=== PATIENT | female | born 1990 | race Caucasian/White ===

== ENCOUNTER → 2016-11-10 | Outpatient (CLI) | payer BC, OTHER ==
--- NOTE | 2016-11-10 16:55 | CT ---
EXAMINATION TYPE: CT sella turcica wo con DATE OF EXAM: 11/10/2016 4:46 PM COMPARISON: NONE HISTORY: Hairloss, headaches and amenorrhea. CT DLP: 210.00 mGycm Automated exposure control for dose reduction was used. Unenhanced CT of the sella turcica was perfor med. The lack of contrast limits examination due to a for microadenoma. FINDINGS: The pituitary gland appears to be of normal size measuring 9.7 x 7.1 mm. No evidence for macroadenoma . This study is nondiagnostic for microadenoma. If there is clinical concern for microadenoma conside r MRI with and without contrast of the pituitary gland. Sella turcica is grossly intact without evide nce for bony erosion or destructive process. Suprasellar cistern is grossly unremarkable. Visualized brain parenchyma is grossly unremarkable. IMPRESSION: NO GROSS ABNORMALITY IS SEEN OF THE SELLA TURCICA. 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
== END | disposition home or self-care (01) ==
LOC: RADCTMAIN 16:11
PROVIDERS: ATTEND Family Medicine
DX: R51 Headache (principal)
CPT/HCPCS: 70480

== ENCOUNTER → 2016-11-25 | Outpatient (CLI) | payer BC ==
--- NOTE | 2016-11-26 08:34 | MR ---
MRI brain with and without contrast HISTORY: Hair loss, amenorrhea, abnormal CT, headaches Multiplanar multisequence and postcontrast images obtained through the brain with special attention t o the sella turcica following 20 cc MultiHance IV. Correlation to sella turcica CT dated 10 November 2016 The pituitary shows a normal configuration. There is normal enhancement following contrast administra tion. No mass effect. Internal carotid arteries show normal flow voids. Corpus callosum is within nor mal limits. IMPRESSION: Normal pituitary MRI
== END ==
LOC: RADMRIMAIN 19:45
PROVIDERS: ATTEND Family Medicine
DX: R51 Headache (principal); R93.0 Abnormal findings on diagnostic imaging of skull and head, not elsewhere classified; L65.9 Nonscarring hair loss, unspecified; N91.2 Amenorrhea, unspecified
CPT/HCPCS: 70553; A9577

== ENCOUNTER → 2016-12-13 | Outpatient (CLI) | payer BC ==
[2016-12-13 10:26] LABS: Basophils # (A) 0.1 k/uL (0-0.2); Basophils % (A) 1 %; CH 30.4; CHCM 35.1; Eosinophils # (A) 0.2 k/uL (0-0.7); Eosinophils % (A) 2 %; HCT 41.9 % (34.0-46.0); HDW 2.91; HGB 14.4 gm/dL (11.4-16.0); Luc # (Auto) 0.15; Luc % (Auto) 2; Lymphocytes # (A) 2.5 k/uL (1.0-4.8); Lymphocytes % (A) 29 %; MCH 29.9 pg (25.0-35.0); MCHC 34.3 g/dL (31.0-37.0); Mean Platelet Volume 7.4; Monocytes # (A) 0.4 k/uL (0-1.0); Monocytes % (A) 4 %; Neutrophils # (A) 5.4 k/uL (1.3-7.7); Neutrophils % (A) 63 %; RBC 4.82 m/uL (3.80-5.40); RDW 13.3 % (11.5-15.5); WBC 8.6 k/uL (3.8-10.6); WBC (Perox) 8.54
[2016-12-13 12:25] LABS: ALT 27 U/L (9-52); AST 15 U/L (14-36); Alkaline Phosphatase 58 U/L (38-126); Anion Gap 8 mmol/L; Blood Urea Nitrogen 15 mg/dL (7-17); Calcium 10.1 mg/dL (8.4-10.2); Carbon Dioxide 27 mmol/L (22-30); Chloride 106 mmol/L (98-107); Cholesterol 246 mg/dL (<200); Glucose 102 mg/dL (74-99); HDL Cholesterol 56 mg/dL (40-60); Non-African American GFR(MDRD) >60 (>60 ml/min/1.73 sqM); Potassium 4.6 mmol/L (3.5-5.1); Sodium 141 mmol/L (137-145); Total Bilirubin 0.6 mg/dL (0.2-1.3); Total Protein 7.7 g/dL (6.3-8.2); Triglycerides 121 mg/dL (<150)
[2016-12-13 14:42] LABS: Follicle Stimulating Hormone <0.7 mIU/mL
[2016-12-13 14:58] LABS: Estradiol 32 pg/mL
[2016-12-13 22:08] LABS: ACTH 18.3 pg/mL (0.00-45.99)
== END | disposition home or self-care (01) ==
LOC: LABWHC1 10:06
PROVIDERS: ATTEND Family Medicine
DX: E55.9 Vitamin D deficiency, unspecified (principal); E78.5 Hyperlipidemia, unspecified; R53.81 Other malaise; R10.9 Unspecified abdominal pain; L65.9 Nonscarring hair loss, unspecified
CPT/HCPCS: 36415; 80053; 80061; 82024; 82306; 82533; 82670; 83001; 83002; 84146; 84403; 84439; 84443; 85025

== ENCOUNTER → 2016-12-30 | Outpatient (CLI) | payer BC ==
--- NOTE | 2016-12-30 16:55 | US ---
EXAMINATION TYPE: US pelvic complete DATE OF EXAM: 12/30/2016 4:34 PM COMPARISON: CT abdomen and pelvis July 08, 2016 CLINICAL HISTORY: R10.9 ABD AND PELVIC PAIN. Pelvic pain TECHNIQUE: Transabdominal (TA) Date of LMP: 12/17/16 EXAM MEASUREMENTS: Uterus: 7.2 x 3.1 x 4.8 cm Endometrial Stripe: 0.4 cm Right Ovary: 3.2 x 1.7 x 1.8 cm Left Ovary: 3.1 x 2.6 x 2.1 cm 1. Uterus: Anteverted appears wnl 2. Endometrium: appears wnl 3. Right Ovary: wnl 4. Left Ovary: follicles 5. Bilateral Adnexa: wnl 6. Posterior cul-de-sac: wnl Uterus is anteverted in shape and appears normal in size. Endometrium is not suspiciously thickened. No free fluid is seen in pelvis. Both ovaries are seen. No concerning adnexal masses are noted. IMPRESSION: No significant finding is seen to account for patient's symptoms.
== END ==
LOC: RADUSWWP 15:47
PROVIDERS: ATTEND Family Medicine
DX: R10.9 Unspecified abdominal pain (principal)
CPT/HCPCS: 76856

== ENCOUNTER → 2017-03-11 | Outpatient (CLI) | payer BC | END | disposition home or self-care (01) | LOC: LABWHC1 15:47 | PROVIDERS: ATTEND Dermatology | DX: L64.8 Other androgenic alopecia (principal) | CPT/HCPCS: 36415; 84132 ==

== ENCOUNTER → 2018-01-14 | Outpatient (CLI) | payer OTHER | END | disposition home or self-care (01) | LOC: LABWHC1 16:59 | PROVIDERS: ATTEND Dermatology | DX: L64.8 Other androgenic alopecia (principal) | CPT/HCPCS: 36415; 84132 ==

== ENCOUNTER 2018-04-16 23:32 | Emergency (ER) | payer OTHER ==
[2018-04-16 23:39] VITALS: RESP 16; TEMP 99.3
[2018-04-17] MEDS ORDERED: SODIUM CHLORIDE 0.9% 500 ML IV STA (00:29)
--- NOTE | 2018-04-17 00:38 | ED ---
General Adult HPI - General Chief complaint: Upper Respiratory Infection Stated complaint: cough Time Seen by Provider: 04/16/18 23:50 Source: patient Mode of arrival: ambulatory Limitations: no limitations - History of Present Illness Initial comments: Dayanna is a 27 yo previously healthy non-smoker who presents to the ED today via private vehicle for evaluation of progressively worsening nasal congestion, sinus pressure and cough. Patient reports that her and her mother have been staying in a hotel, she reports for the past few days she has been experiencing sinus congestion and post nasal drip. She reports that over the past couple of days she has developed progressively worsening cough, she describes it as feeling as though she has a constant tickle in her throat and constant urge to cough though all she produces is clear sputum. Patient reports that coughing has caused her to have a sore throat and now a headache. She states that she has tried cough drops as well as numbing throat sprays with minimal improvement in her symptoms. She reports that she used a breathing treatment at home which just made her feel like her heart was racing and caused her to cough up more clear sputum. Patient denies any fevers or chills, nausea or vomiting, abdominal pain or change in bowel or bladder habits. She denies any exertional chest pain or cardiac history. Patient states that over the past day her mother has also begun exhibiting symptoms which prompted her to come to the ER for evaluation. - Related Data Home Medications Medication Instructions Recorded Confirmed Levonorgestrel-Ethin Estradiol 1 tab PO DAILY 07/08/16 07/08/16 [Levora-28 Tablet] Previous Rx's Medication Instructions Recorded Ciprofloxacin HCl [Cipro] 500 mg PO Q12HR #14 tablet 07/08/16 Phenazopyridine [Pyridium] 100 mg PO TID #9 tablet 07/08/16 Allergies Allergy/AdvReac Type Severity Reaction Status Date / Time Anesthetics - Yamilka Type- Allergy Swelling Verified 04/16/18 23:39 Parabens [Anesthetics - Yamilka Type] Review of Systems ROS Statement: Those systems with pertinent positive or pertinent negative responses have been documented in the HPI. ROS Other: All systems not noted in ROS Statement are negative. Past Medical History Additional Past Medical History / Comment(s): kidney stones History of Any Multi-Drug Resistant Organisms: None Reported Additional Past Surgical History / Comment(s): eye surg Past Psychological History: No Psychological Hx Reported Smoking Status: Never smoker Past Alcohol Use History: None Reported Past Drug Use History: None Reported General Exam - General Exam Comments Initial Comments: GENERAL: Patient is well-developed and well-nourished. Patient is nontoxic and well- hydrated. She has occasional coughing spells during exam HENT: Normocephalic, Atraumatic. Neck is soft and supple. No significant lymphadenopathy is noted. Oropharynx is clear with visible postnasal drip. Moist mucous membranes. Neck has full range of motion without eliciting any pain. EYES: The sclera were anicteric and conjunctiva were pink and moist. Extraocular movements were intact and pupils were equal round and reactive to light. Eyelids were unremarkable. PULMONARY: Unlabored respirations. Good breath sounds bilaterally. No audible rales rhonchi or wheezing was noted. CARDIOVASCULAR: Tachycardic, regular ABDOMEN: Soft and nontender with normal bowel sounds. SKIN: Skin is clear with no lesions or rashes and otherwise unremarkable. NEUROLOGIC: Patient is alert and oriented x3. Cranial nerves II through XII are grossly intact. Motor and sensory are also intact. Normal speech, volume and content. Symmetrical smile. MUSCULOSKELETAL: Normal extremities with adequate strength and full range of motion. No lower extremity swelling or edema. No calf tenderness. LYMPHATICS: No significant lymphadenopathy is noted PSYCHIATRIC: Normal psychiatric evaluation. Limitations: no limitations Limitations: no limitations Course Vital Signs 04/16/18 04/17/18 04/17/18 23:36 00:51 01:32 Temperature 99.3 F Pulse Rate 111 H 70 97 Respiratory 16 16 16 Rate Blood Pressure 132/87 128/66 114/70 O2 Sat by Pulse 96 98 96 Oximetry Medical Decision Making - Medical Decision Making The patient was seen and evaluated, history was obtained from the patient Chest x-ray and labs are ordered X-ray with no acute findings Aced on patient's history and physical exam I have a high suspicion for a viral illness. At this time I don't feel there is any indication for antibiotic therapy. This was discussed with the patient who expresses some disappointment that she was hoping to get a medication that would make her feel better today. I advised her that she needs to remain hydrated, symptomatic treatment with nasal spray, allergy medication and cough drops. Return parameters were discussed with the patient, all questions pertaining care were answered best my ability and the patient was discharged home able condition. - Lab Data Result diagrams: 04/17/18 00:40 04/17/18 00:40 Lab Results 04/17/18 04/17/18 Range/Units 00:40 00:40 WBC 15.9 H (3.8-10.6) k/uL RBC 4.42 (3.80-5.40) m/uL Hgb 13.3 (11.4-16.0) gm/dL Hct 40.3 (34.0-46.0) % MCV 91.2 (80.0-100.0) fL MCH 30.1 (25.0-35.0) pg MCHC 33.0 (31.0-37.0) g/dL RDW 12.9 (11.5-15.5) % Plt Count 282 (150-450) k/uL Neutrophils % 78 % Lymphocytes % 14 % Monocytes % 5 % Eosinophils % 2 % Basophils % 0 % Neutrophils # 12.4 H (1.3-7.7) k/uL Lymphocytes # 2.2 (1.0-4.8) k/uL Monocytes # 0.8 (0-1.0) k/uL Eosinophils # 0.2 (0-0.7) k/uL Basophils # 0.1 (0-0.2) k/uL Sodium 138 (137-145) mmol/L Potassium 4.2 (3.5-5.1) mmol/L Chloride 103 (98-107) mmol/L Carbon Dioxide 27 (22-30) mmol/L Anion Gap 8 mmol/L BUN 16 (7-17) mg/dL Creatinine 0.80 (0.52-1.04) mg/dL Est GFR (CKD-EPI)AfAm >90 (>60 ml/min/1.73 sqM) Est GFR (CKD-EPI)NonAf >90 (>60 ml/min/1.73 sqM) Glucose 117 H (74-99) mg/dL Calcium 10.4 H (8.4-10.2) mg/dL Disposition Clinical Impression: Viral infection, Upper respiratory infection Disposition: HOME SELF-CARE Instructions: Upper Respiratory Infection (ED) Is patient prescribed a controlled substance at d/c from ED?: No Referrals: Diaz Locke MD [Primary Care Provider] - 1-2 days Time of Disposition: 01:24
[2018-04-17 00:56] LABS: Basophils # (A) 0.1 k/uL (0-0.2); Basophils % (A) 0 %; Eosinophils # (A) 0.2 k/uL (0-0.7); Eosinophils % (A) 2 %; HCT 40.3 % (34.0-46.0); HGB 13.3 gm/dL (11.4-16.0); Lymphocytes # (A) 2.2 k/uL (1.0-4.8); Lymphocytes % (A) 14 %; MCH 30.1 pg (25.0-35.0); MCV 91.2 fL (80.0-100.0); Mean Platelet Volume 7.5; Monocytes # (A) 0.8 k/uL (0-1.0); Monocytes % (A) 5 %; Neutrophils # (A) 12.4 k/uL (1.3-7.7); Neutrophils % (A) 78 %; Platelet Count 282 k/uL (150-450); RBC 4.42 m/uL (3.80-5.40); RDW 12.9 % (11.5-15.5); WBC 15.9 k/uL (3.8-10.6)
[2018-04-17 01:04] LABS: Anion Gap 8 mmol/L; Blood Urea Nitrogen 16 mg/dL (7-17); Calcium 10.4 mg/dL (8.4-10.2); Carbon Dioxide 27 mmol/L (22-30); Chloride 103 mmol/L (98-107); Glucose 117 mg/dL (74-99); Potassium 4.2 mmol/L (3.5-5.1); Sodium 138 mmol/L (137-145)
--- NOTE | 2018-04-17 01:05 | XR ---
EXAMINATION TYPE: XR chest 2V DATE OF EXAM: 04/17/2018 COMPARISON: NONE HISTORY: Cough TECHNIQUE: Frontal and lateral views of the chest are obtained. FINDINGS: Heart and mediastinum are normal. Lungs are clear. Diaphragm is normal. Bony thorax appear s normal. Pulmonary vascularity is normal. IMPRESSION: Normal chest.
[2018-04-17 01:32] VITALS: BP 114/70; PULSE 97
== END 2018-04-17 01:32 | disposition home or self-care (01) ==
LOC: EC 23:32
DX: J06.9 Acute upper respiratory infection, unspecified (principal); R00.0 Tachycardia, unspecified; Z79.3 Long term (current) use of hormonal contraceptives; Z88.4 Allergy status to anesthetic agent
CPT/HCPCS: 36415; 71046; 80048; 85025; 99283

== ENCOUNTER → 2018-05-21 | Outpatient (CLI) | payer OTHER | END | disposition home or self-care (01) | LOC: LABWHC1 08:39 | PROVIDERS: ATTEND Physician Assistant Medical | DX: L64.8 Other androgenic alopecia (principal) | CPT/HCPCS: 36415; 84132 ==

== ENCOUNTER → 2019-04-05 | Outpatient (CLI) | payer OTHER ==
--- NOTE | 2019-04-06 10:15 | US ---
EXAMINATION TYPE: US kidneys/renal and bladder DATE OF EXAM: 04/05/2019 COMPARISON: NONE CLINICAL HISTORY: N20.1 right ureteral stone; prior right flank pain; prior left renal stone per marisa ent EXAM MEASUREMENTS: Right Kidney: 10.4 x 5.8 x 4.7 cm Left Kidney: 11.2 x 4.4 x 4.7 cm Post Void Residual Volume: 0.7 mL Right Kidney: prominent right renal pelvis = 1.12cm Left Kidney: No hydronephrosis or masses seen Bladder: wnl Bilateral Jets seen: yes Normal Post Void Residual: yes IMPRESSION: 1. There is slight prominence of the right renal pelvis. This could be due to a extrarenal pelvis.
== END | disposition home or self-care (01) ==
LOC: RADUSWWP 15:49
PROVIDERS: ATTEND Family Medicine
DX: N20.1 Calculus of ureter (principal); Z88.4 Allergy status to anesthetic agent
CPT/HCPCS: 76770

== ENCOUNTER → 2020-01-03 | Outpatient (CLI) | payer OTHER ==
--- NOTE | 2020-01-03 16:23 | US ---
EXAMINATION TYPE: Transabdominal DATE OF EXAM: 01/03/2020 2:55 PM COMPARISON: NONE CLINICAL HISTORY: Z36 Confirm dates. EXAM PERFORMED: Transabdominal (TA) EXAM MEASUREMENTS: GESTATIONAL AGE / DATING Physician Established: Not yet established ( Dates by LMP: (10 weeks/2 days) EDC: 07/29/2020 Dates by First Scan: No previous this is first scan Dates by Current Scan for: (8 weeks/0 days) EDC: 08/14/2020 MATERNAL ANATOMY Uterus: 11.4 x 5.8 x 6.5 cm Right Ovary: 2.0 x 1.6 x 2.0 cm Left Ovary: 2.7 x 2.3 x 2.3 cm Post CDS / Adnexa: wnl Presence of free fluid: No Presence of corpus luteal cyst: No Presence of subchorionic bleed: No GESTATION / SURVEY CRL: 1.6 cm (8 weeks/0 days) Yolk Sac (normal less than 6mm): 0.3 cm Heart Rate: 169 bpm Rhythm: Normal IUP: Viable IUP Date of LMP: 10/23/2019 Beta HcG (if available): Not available at this time Viable IUP measuring 8 weeks/0 days with an BRADLEY of 08/14/2020 by this exam IMPRESSION: 1. Single intrauterine gestation estimated 8 weeks 0 days gestation based on the crown-rump length. C ardiac activity measures 160 bpm.
== END | disposition home or self-care (01) ==
LOC: RADUSWWP 14:33
PROVIDERS: ATTEND Obstetrics & Gynecology
DX: Z36.87 Encounter for antenatal screening for uncertain dates (principal); Z3A.08 8 weeks gestation of pregnancy
CPT/HCPCS: 76801

== ENCOUNTER 2020-08-06 11:16 | Outpatient (CLI) | payer OTHER ==
[2020-08-06 12:12] VITALS: BP 130/69; PULSE 108; RESP 15; TEMP 98
--- NOTE | 2020-08-12 05:20 | P.MSEPDOC ---
Presenting Problems - Arrival Data Date of Arrival on Unit: 08/06/20 Time of Arrival on Unit: 11:16 Mode of Transport: Ambulatory - Complaint OB-Reason for Admission/Chief Complaint: Elevated Blood Pressure Medical History - Information : 1 Para: 0 Term: 0 : 0 Abortions: Spontaneous or Elective: 0 Number of Living Children: 0 - Gestational Age Gestational Age by BRALDEY (wks/days): 38 Weeks and 6 Days Review of Systems - Review of Systems Constitutional: No problems Breast: No problems ENT: No problems Cardiovascular: No problems Respiratory: No problems Gastrointestinal: No problems Genitourinary: No problems Musculoskeletal: No problems Neurological: No problems Skin: No problems Vital Signs - Temperature Temperature: 98 F Temperature Source: Temporal Artery Scan - Pulse Pulse Oximetery Pulse Rate: 108 Pulse Assessment Method: Pulse Oximetry - Respirations Respiratory Rate: 15 Oxygen Delivery Method: Room Air - Blood Pressure Right Arm Blood Pressure: 130/69 Blood Pressure Mean: 89 Blood Pressure Source: Automatic Cuff Medical Screen Scoring (Pre) - Cervical Exam Dilation: Exam Deferred Effacement: Exam Deferred Membranes: Intact - Uterine Contractions Frequency: N/A Duration: N/A Intensity: N/A - Maternal Vital Signs Maternal Temperature: N/A Maternal Blood Pressure: N/A Signs of Preeclampsia: N/A Maternal Respirations: N/A - Maternal Trauma Maternal Trauma: N/A - Assessment - Baby A Baseline FHR: 120 Heart Rate - NICHD Category: Category I (Normal) = 0 NST: Reactive Position: N/A Station: N/A - Total Score - Baby A Total Score - Baby A: 0 - Total Score - Baby B Total Score - Baby B: 0 - Total Score - Baby C Total Score - Baby C: 0 - Level of Risk - Baby A Level of Risk - Baby A: Low (0-5) - Level of Risk - Baby B Level of Risk - Baby B: Low (0-5) - Level of Risk - Baby C Level of Risk - Baby C: Low (0-5) Physician Notification (Pre) - Physician Notified Physician Notified Date: 08/06/20 Physician Notified Time: 12:00 New Order Received: Yes Disposition - Disposition OB Disposition: Discharge to home Discharge Date: 08/06/20 Discharge Time: 12:23 I agree with the RN Medical Screening Exam: Yes Risk & Benefit of care provided described in d/c instruction: Yes Diagnosis: GESTATIONAL HTN W/O SIGNIFICANT PROTEINURIA, THIRD TRIMESTER
== END 2020-08-06 12:24 | disposition home or self-care (01) ==
LOC: FBPOP 11:16
PROVIDERS: ATTEND Obstetrics & Gynecology
DX: O13.3 Gestational [pregnancy-induced] hypertension without significant proteinuria, third trimester (principal); Z3A.38 38 weeks gestation of pregnancy
CPT/HCPCS: 59025; 99213

== ENCOUNTER 2020-08-08 05:43 | Inpatient (IN) | payer OTHER ==
[2020-08-08 06:04] LABS: Glucose,Whole Blood 90 mg/dL (75-99)
[2020-08-08] MEDS: LACTATED RINGERS 1,000 ML IV SCH ×3 (06:05→15:21)
[2020-08-08] MEDS ORDERED: CARBOPROST TROMETHAMINE 250 MCG/ML 1 ML AMP IM PRN (06:09)
[2020-08-08] MEDS ORDERED: OXYTOCIN 10 UNIT/ML 1 ML VIAL IM PRN (06:09)
[2020-08-08] MEDS ORDERED: TERBUTALINE 1 MG/ML VIAL SQ PRN (06:09)
[2020-08-08] MEDS ORDERED: LIDOCAINE 0.5% (PF) 5 MG/ML (50 ML SDV) SQ PRN (06:09)
[2020-08-08] MEDS ORDERED: METHYLERGONOVINE 0.2 MG/ML 1 ML AMP IM PRN (06:09)
[2020-08-08] MEDS ORDERED: OXYTOCIN 30 UNITS/500 ML NS 30 UNIT in SALINE 1 500ML.BAG IV SCH (06:15)
[2020-08-08 06:50] LABS: Basophils % (A) 0 %; Eosinophils # (A) 0.3 k/uL (0-0.7); Eosinophils % (A) 2 %; HCT 36.4 % (34.0-46.0); HGB 12.6 gm/dL (11.4-16.0); Lymphocytes # (A) 2.4 k/uL (1.0-4.8); Lymphocytes % (A) 22 %; MCH 30.7 pg (25.0-35.0); MCHC 34.6 g/dL (31.0-37.0); MCV 88.7 fL (80.0-100.0); Mean Platelet Volume 8.9; Monocytes # (A) 0.5 k/uL (0-1.0); Monocytes % (A) 5 %; Neutrophils # (A) 7.6 k/uL (1.3-7.7); Neutrophils % (A) 69 %; Platelet Count 186 k/uL (150-450); RBC 4.11 m/uL (3.80-5.40); RDW 14.1 % (11.5-15.5)
--- NOTE | 2020-08-08 07:23 | P.HPOB ---
History of Present Illness H&P Date: 08/08/20 Chief Complaint: Induction of labor 29-year-old presents at 39 weeks for induction of labor. Her cervix is 3 cm dilated, 80% effaced, -2 station. She is claribel irregularly. heart tones 130 with moderate variability and reactive. She is gestational diabetic A1 glucose today is 90. Review of Systems All systems: negative Constitutional: Denies chills, Denies fever Eyes: denies blurred vision, denies pain Ears, nose, mouth and throat: Denies headache, Denies sore throat Cardiovascular: Denies chest pain, Denies shortness of breath Respiratory: Denies cough Gastrointestinal: Denies abdominal pain, Denies diarrhea, Denies nausea, Denies vomiting Genitourinary: Denies dysuria, Denies hematuria Musculoskeletal: Denies myalgias Integumentary: Denies pruritus, Denies rash Neurological: Denies numbness, Denies weakness Psychiatric: Denies anxiety, Denies depression Endocrine: Denies fatigue, Denies weight change Past Medical History Past Medical History: Diabetes Mellitus Additional Past Medical History / Comment(s): kidney stones, gest diabetes. Obstetric history: This is her first and she's had care with me since the first trimester. Paternity 21 negative normal anatomy ultrasound, GBS negative blood type is A-, and risks negative, rubella nonimmune, RPR nonreactive, hepatitis B negative. History of Any Multi-Drug Resistant Organisms: None Reported Additional Past Surgical History / Comment(s): eye surg Past Anesthesia/Blood Transfusion Reactions: Postoperative Nausea & Vomiting (PONV) Additional Past Anesthesia/Blood Transfusion Reaction / Comment(s): pt had some swelling when younger with anesthesia Past Psychological History: No Psychological Hx Reported Smoking Status: Never smoker Past Alcohol Use History: None Reported Past Drug Use History: None Reported - Past Family History Mother Family Medical History: Diabetes Mellitus, Respiratory Disorder Additional Family Medical History / Comment(s): stents in heart and groin due to hx of clots, emphzema, bronchitis Medications and Allergies Home Medications Medication Instructions Recorded Confirmed Type Pnv No.95/Ferrous Fum/Folic AC 1 each PO DAILY 08/06/20 08/06/20 History [ Multivitamin Tablet] Allergies Allergy/AdvReac Type Severity Reaction Status Date / Time Anesthetics - Yamilka Type- Allergy Swelling Verified 08/08/20 06:04 Parabens [Anesthetics - Yamilka Type] Exam Osteopathic Statement: *. No significant issues noted on an osteopathic structural exam other than those noted in the History and Physical/Consult. Vital Signs Temp Pulse Resp BP 08/08/20 06:32 98.1 F 93 18 137/90 Intake and Output 08/07/20 08/08/20 08/08/20 22:59 06:59 14:59 Other: Weight 101.605 kg Heart: Regular rate and rhythm Lungs: Clear to auscultation bilaterally Abdomen: Soft, nontender Extremities: Negative Homans sign Results Result Diagrams: 08/08/20 06:21 Abnormal Lab Results - Last 24 Hours (Table) 08/08/20 Range/Units 06:21 WBC 11.0 H (3.8-10.6) k/uL Assessment and Plan (1) Normal labor Current Visit: Yes Status: Acute Code(s): O80 - ENCOUNTER FOR FULL-TERM UNCOMPLICATED DELIVERY; Z37.9 - OUTCOME OF DELIVERY, UNSPECIFIED SNOMED Code(s): 04773186 (2) Gestational diabetes mellitus, class A1 Current Visit: Yes Status: Acute Code(s): O24.410 - GESTATIONAL DIABETES MELLITUS IN , DIET CONTROLLED SNOMED Code(s): 19657544 Plan: 1. Induction of labor with amniotomy and Pitocin 2. Anticipate normal vaginal delivery
[2020-08-08] MEDS ORDERED: SODIUM CHLORIDE 0.9% 100 ML BAG ONE (09:30)
[2020-08-08] MEDS ORDERED: fentaNYL (PF) 50 MCG/ML 5 ML AMP ONE (09:30)
[2020-08-08] MEDS ORDERED: ROPIVACAINE 5MG/ML 20ML VIAL ONE (09:30)
[2020-08-08] MEDS ORDERED: ROPIVACAINE 100 MG, fentaNYL (PF) 200 MCG in SODIUM CHLORIDE 0.9% 76 ML EPIDURAL ONE (11:20)
[2020-08-08 16:46] LABS: Hemoglobin A1C 4.9 % (4.0-6.0)
[2020-08-08] MEDS ORDERED: ZOLPIDEM 5 MG TAB PO PRN (17:01)
[2020-08-08] MEDS ORDERED: diphenhydrAMINE 25 MG CAP PO PRN (17:01)
[2020-08-08] MEDS ORDERED: HYDROCORTISONE 2.5% RECTAL CREAM 30 GM TUBE RECTAL PRN (17:01)
[2020-08-08] MEDS ORDERED: diphenhydrAMINE 50 MG/ML 1 ML VIAL IVP PRN ×2 (17:01)
[2020-08-08] MEDS ORDERED: BENZOCAINE/MENTHOL SPRAY 1 GM/SPRAY AEROSOL TOPICAL PRN (17:01)
[2020-08-08] MEDS ORDERED: ACETAMINOPHEN TAB 325 MG TAB PO PRN (17:01)
[2020-08-08] MEDS ORDERED: diphenhydrAMINE 50 MG CAP PO PRN (17:01)
[2020-08-08] MEDS ORDERED: LANOLIN CREAM 5 GM TUBE TOPICAL PRN (17:01)
[2020-08-08] MEDS ORDERED: SIMETHICONE 80 MG CHEWABLE PO PRN (17:01)
[2020-08-08] MEDS ORDERED: OXYTOCIN 20 UNITS/1000 ML NS 1,000 ML IV SCH (17:15)
[2020-08-08] MEDS: IBUPROFEN 600 MG TAB PO PRN (17:26)
--- NOTE | 2020-08-08 18:41 | P.PROBDLV ---
Vaginal Delivery Note - . Vaginal Delivery Note: 29-year-old presents at 39 weeks for induction of labor. Her cervix is 3 cm dilated, 80% effaced, -2 station. She is claribel irregularly. heart tones 130 with moderate variability and reactive. She is gestational diabetic A1 glucose today is 90 Pitocin was started. Amniotomy performed at 7:05 AM and clear fluid noted. When she was uncomfortable she did get an epidural. Her cervix is completely dilated at 1523. She pushed, and delivered a viable male infant over midline episiotomy under epidural anesthesia at 1614. Head delivered OA, anterior shoulder delivered gentle downward counts 5 by posterior shoulder and rest of body. Nose and mouth bulb suctioned, and cut, placed mother's abdomen. Apgars 9, 10, weight 5 lbs. 13 oz. Placenta delivered spontaneously, intact with three-vessel cord at 1616. Vagina, cervix, perineum inspected. Second-degree midline laceration was repaired with 3-0 Vicryl. Estimated blood loss 200 mL. Mother and baby in stable condition.
[2020-08-08] MEDS: SENNOSIDES-DOCUSATE SODIUM 1 EACH TAB PO SCH (21:38)
[2020-08-08] MEDS ORDERED: Rhogam IMMUNE GLOBULIN 1,500 UNIT/1 ML IM ONE (23:00)
[2020-08-09 07:14] LABS: Basophils % (A) 0 %; Eosinophils # (A) 0.2 k/uL (0-0.7); Eosinophils % (A) 1 %; HCT 30.6 % (34.0-46.0); HGB 11.1 gm/dL (11.4-16.0); Lymphocytes # (A) 2.5 k/uL (1.0-4.8); Lymphocytes % (A) 22 %; MCH 32.3 pg (25.0-35.0); MCHC 36.1 g/dL (31.0-37.0); MCV 89.5 fL (80.0-100.0); Mean Platelet Volume 8.9; Monocytes # (A) 0.4 k/uL (0-1.0); Monocytes % (A) 4 %; Neutrophils # (A) 8.2 k/uL (1.3-7.7); Neutrophils % (A) 71 %; Platelet Count 160 k/uL (150-450); RBC 3.42 m/uL (3.80-5.40); RDW 14.3 % (11.5-15.5); WBC 11.6 k/uL (3.8-10.6)
--- NOTE | 2020-08-09 07:23 | P.DS ---
Providers Date of admission: 08/08/20 05:43 Expected date of discharge: 08/09/20 Attending physician: Ekta Galdamez Primary care physician: Stated None - Discharge Diagnosis(es) (1) Normal labor Current Visit: Yes Status: Resolved (2) Gestational diabetes mellitus, class A1 Current Visit: Yes Status: Resolved (3) Normal vaginal delivery Current Visit: Yes Status: Acute Hospital Course: 21-year-old presents at 39 weeks for induction of labor.She had a normal vaginal delivery. course was uncomplicated. Denies nausea, vomiting, chest pain, shortness of breath or calf pain. She'll be discharged home day #1 in stable condition to follow-up with me in 6 weeks. Plan - Discharge Summary New Discharge Prescriptions: New Ibuprofen [Motrin] 600 mg PO Q6HR PRN #30 tab PRN Reason: Mild Pain Or Fever >= 100.5 No Action Pnv No.95/Ferrous Fum/Folic AC [ Multivitamin Tablet] 1 each PO DAILY Discharge Medication List Pnv No.95/Ferrous Fum/Folic AC [ Multivitamin Tablet] 1 each PO DAILY 08/06/20 [History] Ibuprofen [Motrin] 600 mg PO Q6HR PRN #30 tab 08/09/20 [Rx] Follow up Appointment(s)/Referral(s): Ekta Galdamez DO [Doctor of Osteopathic Medicine] - 6 Weeks Discharge Disposition: HOME SELF-CARE
[2020-08-09] MEDS: IBUPROFEN 600 MG TAB PO PRN (07:54)
[2020-08-09] MEDS: SENNOSIDES-DOCUSATE SODIUM 1 EACH TAB PO SCH (08:15)
[2020-08-09 08:16] VITALS: TEMP 98.1
[2020-08-09] MEDS ORDERED: MEASLES-MUMPS-RUBELLA VACC/PF 12,500 UNIT/0.5 ML VIAL SQ ONE (11:50)
[2020-08-09 17:04] VITALS: BP 139/83; PULSE 88; RESP 17
== END 2020-08-09 17:34 | disposition home or self-care (01) | DRG 807 ==
LOC: 4FBP 05:43
PROVIDERS: ADMIT Obstetrics & Gynecology; ATTEND Obstetrics & Gynecology
PROC: 0KQM0ZZ Repair Perineum Muscle, Open Approach (ICD-10-PCS; principal; 2020-08-08)
PROC: 10E0XZZ Delivery of Products of Conception, External Approach (ICD-10-PCS; principal; 2020-08-08)
PROC: 00HU33Z Insertion of Infusion Device into Spinal Canal, Percutaneous Approach (ICD-10-PCS; principal; 2020-08-08)
PROC: 3E0R3BZ Introduction of Anesthetic Agent into Spinal Canal, Percutaneous Approach (ICD-10-PCS; principal; 2020-08-08)
DX: O24.420 Gestational diabetes mellitus in childbirth, diet controlled (principal); Z37.0 Single live birth; O70.1 Second degree perineal laceration during delivery; Z3A.39 39 weeks gestation of pregnancy; Z87.442 Personal history of urinary calculi; Z82.5 Family history of asthma and other chronic lower respiratory diseases; Z83.3 Family history of diabetes mellitus; Z82.49 Family history of ischemic heart disease and other diseases of the circulatory system
CPT/HCPCS: 83036; 85025; 85461; 86850; 86900; 86901; 90471; 90707

== ENCOUNTER 2020-08-20 18:42 | Emergency (ER) | payer OTHER ==
[2020-08-20 18:47] VITALS: RESP 18
--- NOTE | 2020-08-20 21:00 | ED ---
Extremity Problem HPI - General Chief complaint: Extremity Problem,Nontraumatic Stated complaint: pain in leg Time Seen by Provider: 08/20/20 20:46 Source: patient Mode of arrival: ambulatory Limitations: no limitations - History of Present Illness Initial comments: 29-year-old female patient presents to the emergency department today for evaluation of left calf pain. Patient states that she started to have pain in the calf especially with walking over the last few days. States that she did have a vaginal delivery of a healthy baby boy on 08/08/2020. Patient denies any leg swelling. Denies any redness. Denies history of blood clots. States her mother does have history of blood clots. Denies any chest pain or shortness of breath. Denies fever or chills. Denies any injury to the leg. Denies numbness or tingling to the lower extremity. Patient denies any recent rash, cough, abdominal pain, nausea, vomiting, diarrhea, constipation, back pain, numbness, tingling, dizziness, weakness, hematuria, dysuria, urinary urgency, urinary frequency, headache, visual changes, or any other complaints. - Related Data Home Medications Medication Instructions Recorded Confirmed Pnv No.95/Ferrous Fum/Folic AC 1 each PO DAILY 08/06/20 08/06/20 [ Multivitamin Tablet] Previous Rx's Medication Instructions Recorded Ibuprofen [Motrin] 600 mg PO Q6HR PRN #30 tab 08/09/20 Ibuprofen [Motrin] 600 mg PO Q8HR PRN #30 tab 08/20/20 Allergies Allergy/AdvReac Type Severity Reaction Status Date / Time Anesthetics - Yamilka Type- Allergy Swelling Verified 08/20/20 18:47 Parabens [Anesthetics - Yamilka Type] Review of Systems ROS Statement: Those systems with pertinent positive or pertinent negative responses have been documented in the HPI. ROS Other: All systems not noted in ROS Statement are negative. Past Medical History Past Medical History: Diabetes Mellitus Additional Past Medical History / Comment(s): kidney stones, gest diabetes. Obstetric history: This is her first and she's had care with me since the first trimester. Paternity 21 negative normal anatomy ultrasound, GBS negative blood type is A-, and risks negative, rubella nonimmune, RPR nonreactive, hepatitis B negative. History of Any Multi-Drug Resistant Organisms: None Reported Additional Past Surgical History / Comment(s): eye surg Past Anesthesia/Blood Transfusion Reactions: Postoperative Nausea & Vomiting (PONV) Additional Past Anesthesia/Blood Transfusion Reaction / Comment(s): pt had some swelling when younger with anesthesia Past Psychological History: No Psychological Hx Reported Smoking Status: Never smoker Past Alcohol Use History: None Reported Past Drug Use History: None Reported - Past Family History Mother Family Medical History: Diabetes Mellitus, Respiratory Disorder Additional Family Medical History / Comment(s): stents in heart and groin due to hx of clots, emphzema, bronchitis General Exam Limitations: no limitations General appearance: alert, in no apparent distress, other (Physical well- developed, well-nourished adult female patient in no acute distress. Vital signs upon presentation temperature 99.0F, pulse 92, respirations 18, blood pressure 124/79, pulse ox 99% on room air.) Eye exam: Present: normal appearance, PERRL, EOMI. Absent: scleral icterus, conjunctival injection, periorbital swelling Respiratory exam: Present: normal lung sounds bilaterally. Absent: respiratory distress, wheezes, rales, rhonchi, stridor Cardiovascular Exam: Present: regular rate, normal rhythm, normal heart sounds. Absent: systolic murmur, diastolic murmur, rubs, gallop, clicks GI/Abdominal exam: Present: soft, normal bowel sounds. Absent: distended, tenderness, guarding, rebound, rigid Extremities exam: Present: normal inspection, full ROM, normal capillary refill, calf tenderness (Left), other (Negative Homans). Absent: pedal edema, joint swelling Neurological exam: Present: alert, oriented X3, CN II-XII intact Psychiatric exam: Present: normal affect, normal mood Skin exam: Present: warm, dry, intact, normal color. Absent: rash Course Vital Signs 08/20/20 08/20/20 18:43 22:38 Temperature 99.0 F 98.0 F Pulse Rate 92 85 Respiratory 18 18 Rate Blood Pressure 124/79 127/82 O2 Sat by Pulse 99 99 Oximetry Medical Decision Making - Medical Decision Making 29-year-old female patient presents to the emergency department today for evaluation of left calf pain for the last several days. Physical examination was unremarkable. Mild left calf tenderness. No erythema, no swelling. Patient denied chest pain or shortness of breath. Ultrasound of the left leg was obtained and was negative for signs of DVT. We did discuss Strain as a cause for her symptoms. Discussed stretching, warm compresses, and ibuprofen use. She is instructed to follow-up with her primary care physician for recheck in 1-2 days. She is instructed to consider having a repeat ultrasound on her symptoms are not improved over the next week a dull develops any other symptoms. Return parameters were discussed in detail. She verbalizes understanding and agrees with this plan. - Radiology Data Radiology results: report reviewed, image reviewed Ultrasound of the left lower extremity is obtained. Report was reviewed in its entirety. Impression by Dr. Salinas shows no sign of deep and thrombosis in the left leg. Disposition Clinical Impression: Strain of left calf muscle Disposition: HOME SELF-CARE Condition: Good Instructions (If sedation given, give patient instructions): Muscle Strain (ED) Additional Instructions: Apply warm compresses to the calf. Take Tylenol and Motrin for pain control. Perform gentle stretching exercises. Follow-up with the primary care physician for recheck in 1-2 days. Return to the emergency department for any new, worsening, or concerning symptoms. Prescriptions: Ibuprofen [Motrin] 600 mg PO Q8HR PRN #30 tab PRN Reason: Pain Is patient prescribed a controlled substance at d/c from ED?: No Referrals: Diaz Locke MD [Primary Care Provider] - 1-2 days Time of Disposition: 22:14
--- NOTE | 2020-08-20 22:00 | US ---
EXAMINATION TYPE: US venous doppler duplex LE LT DATE OF EXAM: 08/20/2020 8:50 PM COMPARISON: NONE CLINICAL HISTORY: Left calf pain; recent . 12 days, left calf pain x 2 weeks, no swelling, no h/o dvt SIDE PERFORMED: Left TECHNIQUE: The lower extremity deep venous system is examined utilizing real time linear array sonog adri with graded compression, doppler sonography and color-flow sonography. VESSELS IMAGED: Common Femoral Vein Deep Femoral Vein Greater Saphenous Vein * Femoral Vein Popliteal Vein Small Saphenous Vein * Proximal Calf Veins (* superficial vessels) Left Leg: Negative for DVT IMPRESSION: No sign of deep vein thrombosis in the left leg.
[2020-08-20 22:39] VITALS: BP 127/82; PULSE 85; TEMP 98
== END 2020-08-20 22:39 | disposition home or self-care (01) ==
LOC: EC 18:42
DX: S86.912A Strain of unspecified muscle(s) and tendon(s) at lower leg level, left leg, initial encounter (principal); Z88.4 Allergy status to anesthetic agent; X58.XXXA Exposure to other specified factors, initial encounter
CPT/HCPCS: 99283

== ENCOUNTER 2020-08-25 13:14 | Emergency (ER) | payer OTHER ==
[2020-08-25 13:24] VITALS: RESP 18
[2020-08-25] MEDS ORDERED: SODIUM CHLORIDE 0.9% 1,000 ML IV STA (13:48)
--- NOTE | 2020-08-25 14:03 | ED ---
Abdominal Pain HPI - General Chief Complaint: Abdominal Pain Stated Complaint: right side pain Time Seen by Provider: 08/25/20 13:34 Source: patient, RN notes reviewed Mode of arrival: ambulatory Limitations: no limitations - History of Present Illness Initial Comments: 29-year-old female presents emergency Department with chief complaint of right- sided abdominal pain. Patient states the pain is stabbing in her right side. States his pain rating to her right shoulder. Patient states that she has minimal nausea no vomiting or diarrhea constipation no dysuria she is 2 and half weeks noted chest pain or shortness breath. She states when she takes a deep breath or pushes into her abdomen and which hurts. - Related Data Home Medications Medication Instructions Recorded Confirmed Pnv No.95/Ferrous Fum/Folic AC 1 each PO DAILY 08/06/20 08/06/20 [ Multivitamin Tablet] Previous Rx's Medication Instructions Recorded Ibuprofen [Motrin] 600 mg PO Q6HR PRN #30 tab 08/09/20 Ibuprofen [Motrin] 600 mg PO Q8HR PRN #30 tab 08/20/20 Allergies Allergy/AdvReac Type Severity Reaction Status Date / Time Anesthetics - Yamilka Type- Allergy Swelling Verified 08/25/20 13:24 Parabens [Anesthetics - Yamilka Type] Review of Systems ROS Statement: Those systems with pertinent positive or pertinent negative responses have been documented in the HPI. ROS Other: All systems not noted in ROS Statement are negative. Past Medical History Past Medical History: Diabetes Mellitus Additional Past Medical History / Comment(s): kidney stones, gest diabetes. Obstetric history: This is her first and she's had care with me since the first trimester. Paternity 21 negative normal anatomy ultrasound, GBS negative blood type is A-, and risks negative, rubella nonimmune, RPR nonreactive, hepatitis B negative. History of Any Multi-Drug Resistant Organisms: None Reported Additional Past Surgical History / Comment(s): eye surg Past Anesthesia/Blood Transfusion Reactions: Postoperative Nausea & Vomiting (PONV) Additional Past Anesthesia/Blood Transfusion Reaction / Comment(s): pt had some swelling when younger with anesthesia Past Psychological History: No Psychological Hx Reported Smoking Status: Never smoker Past Alcohol Use History: None Reported Past Drug Use History: None Reported - Past Family History Mother Family Medical History: Diabetes Mellitus, Respiratory Disorder Additional Family Medical History / Comment(s): stents in heart and groin due to hx of clots, emphzema, bronchitis General Exam Limitations: no limitations General appearance: alert, in no apparent distress Head exam: Present: atraumatic, normocephalic, normal inspection Neck exam: Present: normal inspection, full ROM. Absent: tenderness, meningismus, lymphadenopathy Respiratory exam: Present: normal lung sounds bilaterally. Absent: respiratory distress, wheezes, rales, rhonchi, stridor Cardiovascular Exam: Present: regular rate, normal rhythm, normal heart sounds. Absent: systolic murmur, diastolic murmur, rubs, gallop, clicks GI/Abdominal exam: Present: soft, tenderness (Mild to moderate right-sided), no rmal bowel sounds. Absent: distended, guarding, rebound, rigid Back exam: Absent: CVA tenderness (R), CVA tenderness (L) Neurological exam: Present: alert, oriented X3 Skin exam: Present: warm, dry, intact, normal color. Absent: rash Course Vital Signs 08/25/20 13:22 Temperature 98.1 F Pulse Rate 100 Respiratory 18 Rate Blood Pressure 136/83 O2 Sat by Pulse 99 Oximetry Medical Decision Making - Medical Decision Making Ultrasound does show evidence of kidney stone, no hydronephrosis. Vitals are stable. Patient pain may related to gallbladder dysfunction versus flank pain. Patient will be discharged in stable condition return parameters were discussed. - Lab Data Result diagrams: 08/25/20 13:57 08/25/20 13:57 Lab Results 08/25/20 08/25/20 08/25/20 Range/Units 13:57 13:57 13:57 WBC 10.0 (3.8-10.6) k/uL RBC 4.40 (3.80-5.40) m/uL Hgb 13.5 (11.4-16.0) gm/dL Hct 38.5 (34.0-46.0) % MCV 87.6 (80.0-100.0) fL MCH 30.8 (25.0-35.0) pg MCHC 35.1 (31.0-37.0) g/dL RDW 13.0 (11.5-15.5) % Plt Count 327 D (150-450) k/uL MPV 8.0 Neutrophils % 66 % Lymphocytes % 24 % Monocytes % 4 % Eosinophils % 4 % Basophils % 1 % Neutrophils # 6.6 (1.3-7.7) k/uL Lymphocytes # 2.4 (1.0-4.8) k/uL Monocytes # 0.4 (0-1.0) k/uL Eosinophils # 0.4 (0-0.7) k/uL Basophils # 0.1 (0-0.2) k/uL Sodium 140 (137-145) mmol/L Potassium 4.0 (3.5-5.1) mmol/L Chloride 106 (98-107) mmol/L Carbon Dioxide 27 (22-30) mmol/L Anion Gap 7 mmol/L BUN 16 (7-17) mg/dL Creatinine 0.71 (0.52-1.04) mg/dL Est GFR (CKD-EPI)AfAm >90 (>60 ml/min/1.73 sqM) Est GFR (CKD-EPI)NonAf >90 (>60 ml/min/1.73 sqM) Glucose 100 H (74-99) mg/dL Calcium 9.8 (8.4-10.2) mg/dL Total Bilirubin 0.4 (0.2-1.3) mg/dL AST 22 (14-36) U/L ALT 20 (4-34) U/L Alkaline Phosphatase 94 (38-126) U/L Total Protein 7.1 (6.3-8.2) g/dL Albumin 4.1 (3.5-5.0) g/dL Amylase 53 (30-110) U/L Lipase 67 (23-300) U/L Urine Color Yellow Urine Appearance Clear (Clear) Urine pH 5.5 (5.0-8.0) Ur Specific Spring 1.023 (1.001-1.035) Urine Protein Trace H (Negative) Urine Glucose (UA) Negative (Negative) Urine Ketones Negative (Negative) Urine Blood Moderate H (Negative) Urine Nitrite Negative (Negative) Urine Bilirubin Negative (Negative) Urine Urobilinogen <2.0 (<2.0) mg/dL Ur Leukocyte Esterase Large H (Negative) Urine RBC 102 H (0-5) /hpf Urine WBC 38 H (0-5) /hpf Ur Squamous Epith Cells 2 (0-4) /hpf Urine Mucus Rare H (None) /hpf Disposition Clinical Impression: Right flank pain Disposition: HOME SELF-CARE Condition: Stable Instructions (If sedation given, give patient instructions): Abdominal Pain (ED) Additional Instructions: Please return to the Emergency Department if symptoms worsen or any other concerns. Is patient prescribed a controlled substance at d/c from ED?: No Referrals: Diaz Locke MD [Primary Care Provider] - 1-2 days Time of Disposition: 15:06
[2020-08-25 14:07] LABS: Basophils # (A) 0.1 k/uL (0-0.2); Basophils % (A) 1 %; Eosinophils # (A) 0.4 k/uL (0-0.7); Eosinophils % (A) 4 %; HCT 38.5 % (34.0-46.0); HGB 13.5 gm/dL (11.4-16.0); Lymphocytes # (A) 2.4 k/uL (1.0-4.8); Lymphocytes % (A) 24 %; MCH 30.8 pg (25.0-35.0); MCHC 35.1 g/dL (31.0-37.0); MCV 87.6 fL (80.0-100.0); Monocytes # (A) 0.4 k/uL (0-1.0); Monocytes % (A) 4 %; Neutrophils # (A) 6.6 k/uL (1.3-7.7); Neutrophils % (A) 66 %
[2020-08-25 14:10] LABS: Appearance,Urine Clear (Clear); Bilirubin,Urine Negative (Negative); Blood,Urine Moderate (Negative); Color,Urine Yellow; Glucose,Urine (UA) Negative (Negative); Ketones,Urine Negative (Negative); Leukocyte Esterase,Urine Large (Negative); Mucus,Urine Rare /hpf; Nitrite,Urine Negative (Negative); PH, Urine 5.5 (5.0-8.0); Platelet Count 327 k/uL (150-450); Protein,Urine Trace (Negative); RBC,Urine 102 /hpf (0-5); Specific Gravity,Urine 1.023 (1.001-1.035); Squamous Epithelial Cell,Urine 2 /hpf (0-4); Urobilinogen,Urine <2.0 mg/dL (<2.0); WBC,Urine 38 /hpf (0-5)
[2020-08-25 14:17] LABS: ALT 20 U/L (4-34); AST 22 U/L (14-36); African American GFR (CKD) >90 (>60 ml/min/1.73 sqM); Albumin 4.1 g/dL (3.5-5.0); Alkaline Phosphatase 94 U/L (38-126); Amylase 53 U/L (30-110); Anion Gap 7 mmol/L; Blood Urea Nitrogen 16 mg/dL (7-17); Calcium 9.8 mg/dL (8.4-10.2); Carbon Dioxide 27 mmol/L (22-30); Chloride 106 mmol/L (98-107); Glucose 100 mg/dL (74-99); Lipase 67 U/L (23-300); Non-African American GFR(CKD) >90 (>60 ml/min/1.73 sqM); Sodium 140 mmol/L (137-145); Total Bilirubin 0.4 mg/dL (0.2-1.3); Total Protein 7.1 g/dL (6.3-8.2)
--- NOTE | 2020-08-25 14:46 | US ---
EXAMINATION TYPE: US gallbladder DATE OF EXAM: 08/25/2020 COMPARISON: NONE CLINICAL HISTORY: pain. abd pain x 3 days, h/o renal stones, NPO 2hrs EXAM MEASUREMENTS: Liver Length: 16.4 cm Gallbladder Wall: 0.2 cm CBD: 0.4 cm Right Kidney: 12.3 x 5.4 x 5.2 cm Pancreas: wnl Liver: wnl Gallbladder: wnl Evidence for sonographic Wong's sign: no CBD: wnl Right Kidney: 0.7cm mid pole renal stone seen IMPRESSION: No gallstones or dilated ducts. Right renal calculus. No hydronephrosis.
[2020-08-25] MEDS ORDERED: ACET/COD 300 MG/30 MG STARTER PACK 6 TAB BTL PO STA (15:11)
[2020-08-25 15:20] VITALS: BP 113/63; PULSE 96; TEMP 98.2
== END 2020-08-25 15:20 | disposition home or self-care (01) ==
LOC: EC 13:14
DX: R10.9 Unspecified abdominal pain (principal); R11.0 Nausea; Z88.4 Allergy status to anesthetic agent
CPT/HCPCS: 36415; 76705; 80053; 81001; 82150; 83690; 85025; 87086; 96360; 99284

== ENCOUNTER → 2020-11-16 | Outpatient (CLI) | payer OTHER ==
[2020-11-16 20:06] LABS: Hemoglobin A1C 5.6 % (4.0-6.0)
== END | disposition home or self-care (01) ==
LOC: LABWHC1 08:13
PROVIDERS: ATTEND Internal Medicine
DX: O24.419 Gestational diabetes mellitus in pregnancy, unspecified control (principal); E55.9 Vitamin D deficiency, unspecified
CPT/HCPCS: 36415; 82306; 83036

== ENCOUNTER → 2024-01-09 | Outpatient (CLI) | payer BC, OTHER ==
[2024-01-09 13:38] LABS: Chol/HDL Ratio 4.22 Ratio; LDL Cholesterol,Calculated 193.9 mg/dL (0.0-131.0); VLDL Calculation 18.18 mg/dL (5.00-40.00)
== END | disposition home or self-care (01) ==
LOC: LABWHC1 07:07
PROVIDERS: ATTEND Family Medicine
DX: Z00.00 Encounter for general adult medical examination without abnormal findings (principal); E78.2 Mixed hyperlipidemia
CPT/HCPCS: 36415; 80061; 83036

== ENCOUNTER → 2025-02-04 | Outpatient (CLI) | payer BC, OTHER ==
[2025-02-04 10:19] LABS: ALT 18 U/L (4-34); AST 19 U/L (14-36); African American GFR (CKD) >90 (>60 ml/min/1.73 sqM); Albumin 4.4 g/dL (3.5-5.0); Albumin/Globulin Ratio 1.6; Alkaline Phosphatase 64 U/L (38-126); Anion Gap 9 mmol/L; Blood Urea Nitrogen 18 mg/dL (7-17); Calcium 9.8 mg/dL (8.4-10.2); Carbon Dioxide 26 mmol/L (22-30); Chloride 106 mmol/L (98-107); Globulin 2.7 g/dL; Glucose 103 mg/dL (74-99); Non-African American GFR(CKD) >90 (>60 ml/min/1.73 sqM); Potassium 4.3 mmol/L (3.5-5.1); Sodium 141 mmol/L (137-145); Total Bilirubin 0.6 mg/dL (0.2-1.3); Total Protein 7.1 g/dL (6.3-8.2)
[2025-02-05 01:18] LABS: Chol/HDL Ratio 4.13 Ratio; LDL Cholesterol,Calculated 191.4 mg/dL (0.0-131.0)
== END | disposition home or self-care (01) ==
LOC: LABWHC1 08:40
PROVIDERS: ATTEND Family Medicine
DX: E78.00 Pure hypercholesterolemia, unspecified (principal)
CPT/HCPCS: 36415; 80053; 80061